=== PATIENT | female | born 1995 | race Two or more races ===

== ENCOUNTER 2016-10-15 14:06 | Emergency (ER) | payer MEDICAID ==
[2016-10-15 15:18] LABS: SPECIFIC GRAVITY 1.015 (1.001-1.030); URINE BILIRUBIN NEGATIVE (NEGATIVE); URINE BLOOD TRACE (NEGATIVE); URINE GLUCOSE (UA) NEGATIVE (NEGATIVE); URINE LEUKOCYTE ESTERASE 1+ (NEGATIVE); URINE NITRITE NEGATIVE (NEGATIVE); URINE PROTEIN TRACE (NEGATIVE); URINE UROBILINOGEN NORMAL (0-1 mg/dl)
[2016-10-15] MEDS ORDERED: ONDANSETRON 4 MG ODT TAB ONE (15:36)
[2016-10-15 15:39] LABS: URINE APPEARANCE CLOUDY; URINE COLOR YELLOW; URINE EPITHELIAL CELLS 15-20 /hpf; URINE RBC 0 /hpf; URINE WBC 40-50 /hpf
[2016-10-15 15:40] LABS: URINE AMORPHOUS SEDIMENT MODERATE; URINE BACTERIA 2+
[2016-10-15] MEDS ORDERED: CEPHALEXIN 500 MG CAPSULE ONE (16:17)
[2016-10-15 16:35] LABS: URINE BILIRUBIN NEGATIVE (NEGATIVE); URINE BLOOD 4+ (NEGATIVE); URINE GLUCOSE (UA) NEGATIVE (NEGATIVE); URINE LEUKOCYTE ESTERASE 1+ (NEGATIVE); URINE NITRITE NEGATIVE (NEGATIVE); URINE PROTEIN NEGATIVE (NEGATIVE); URINE UROBILINOGEN NORMAL (0-1 mg/dl)
[2016-10-15 16:41] LABS: URINE APPEARANCE SL CLOUDY; URINE COLOR YELLOW; URINE RBC 15-30 /hpf
[2016-10-15 16:42] LABS: URINE BACTERIA 1+; URINE EPITHELIAL CELLS 0-1 /hpf; URINE WBC 20-30 /hpf
== END 2016-10-15 16:40 | disposition home or self-care (01) ==
LOC: ED 14:06
DX: O23.41 Unspecified infection of urinary tract in pregnancy, first trimester (principal); N39.0 Urinary tract infection, site not specified; Z3A.12 12 weeks gestation of pregnancy
CPT/HCPCS: 87086; 87186; 81001 ×2; 87077; 99284; 99283; A9270 ×2

== ENCOUNTER 2016-10-22 11:24 | Inpatient (IN) | payer MEDICAID ==
[2016-10-22 12:47] LABS: ABSOLUTE NEUTROPHIL COUNT 15.5 K/mm3 (1.8-7.7); BASO % 0.2 % (0.2-1.0); HEMATOCRIT 35.4 % (37.0-47.0); HEMOGLOBIN 11.3 gm/l (12.0-16.0); IMM NEUT # 0.1 K/mm3 (0-0.2); IMM NEUT% 0.6 % (0-1); LYMPH # 0.8 (1.0-4.8); LYMPH % 4.5 % (15-45); MEAN CORPUSCULAR HEMOGLOBIN 24.9 pg (27.0-31.0); MEAN CORPUSCULAR HGB CONC 31.9 g/dl (33.0-37.0); MEAN PLATELET VOLUME 10.9 fl (7.4-10.4); MONO # 1.9 (0.0-0.8); MONO % 10.1 % (4-12); NEUT % 84.6 % (43-75); PLATELET COUNT 212 K/mm3 (130-400); RED CELL DISTRIBUTION WIDTH 14.3 % (11.5-14.5)
[2016-10-22] MEDS ORDERED: SODIUM CHLORIDE 0.9% 2,000 ML ONE (12:48)
[2016-10-22] MEDS ORDERED: DIPHENHYDRAMINE HCL 50 MG/1 ML VIAL ONE (12:48)
[2016-10-22] MEDS ORDERED: ACETAMINOPHEN 325 MG TABLET ONE (12:48)
[2016-10-22] MEDS ORDERED: ONDANSETRON 4 MG/2ML 2 ML VIAL ONE (12:48)
[2016-10-22 13:11] LABS: I-STAT CREATININE 0.7 mg/dL (0.6-1.3)
[2016-10-22] MEDS ORDERED: CEFTRIAXONE 1 GRAM DUPLEX 50 ML IV ONE (14:34)
--- NOTE | 2016-10-22 14:41 | US ---
RENALS/BLADDER COMPARISON: None. HISTORY: 21 years old. 13 weeks . Pyelonephritis and bilateral flank pain. FINDINGS: Right kidney: Normal size, length 12.1 cm by AP 5.0 cm by transverse 4.9 cm. Normal cortical thickness 8 mm. Normal resistive index 0.67. No stone, hydronephrosis, mass, or cyst. Left kidney: Normal size, 12.4 x 6.3 x 6.2 cm. Normal cortical thickness 8 mm. Normal resistive index 0.67. In the superior medial kidney, 2.1 x 1.7 x 2.1 cm mildly hyperechoic mass. No stone, hydronephrosis, or cyst. Ureters: Neither ureteral jet was identified over a 15 minute period. Urinary bladder: Prevoid volume normal at 113 mL. The patient emptied completely. IMPRESSION: 1. There is no hydronephrosis or evidence of renal abscess. 2. 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 3. No evidence of urine from either ureter. Differential diagnosis includes dehydration or less likely renal failure. The report was sent to the emergency department electronic medical record system, 10/22/2016 at 14:43
[2016-10-22 15:19] LABS: URINE BILIRUBIN NEGATIVE (NEGATIVE); URINE BLOOD TRACE (NEGATIVE); URINE GLUCOSE (UA) NEGATIVE (NEGATIVE); URINE LEUKOCYTE ESTERASE NEGATIVE (NEGATIVE); URINE NITRITE NEGATIVE (NEGATIVE); URINE PROTEIN 1+ (NEGATIVE); URINE UROBILINOGEN 1 mg/dL (0-1 mg/dl)
[2016-10-22 15:25] LABS: URINE APPEARANCE SL CLOUDY; URINE COLOR DARK YELLOW
[2016-10-22 15:31] LABS: URINE RBC 0-2 /hpf
[2016-10-22 15:32] LABS: URINE AMORPHOUS SEDIMENT FEW; URINE BACTERIA 2+
[2016-10-22 16:10] LABS: ALB/GLOB RATIO 0.9 (>1.0); ALBUMIN 3.4 gm/dL (3.5-5.7); CALCIUM 8.9 mg/dL (8.6-10.3)
[2016-10-22] MEDS ORDERED: SODIUM CHLORIDE 0.9% 100 ML IV PRN (17:06)
[2016-10-22] MEDS ORDERED: MENTHOL/CETYLPYRD 1 EACH LOZENGE PO PRN (17:06)
[2016-10-22] MEDS ORDERED: MAGNESIUM HYDROXIDE 30 ML UDCUP PO PRN (17:06)
[2016-10-22] MEDS ORDERED: BISACODYL 10 MG SUP PR PRN (17:06)
[2016-10-22] MEDS ORDERED: BISACODYL 5 MG TABLET.EC PO PRN (17:06)
[2016-10-22] MEDS ORDERED: BLISTEX LIPSTICK 1 EACH TP PRN (17:06)
[2016-10-22 17:37] VITALS: BMI 24.3
[2016-10-22] MEDS ORDERED: PUMP TUBING ONE (17:44)
[2016-10-22] MEDS: SODIUM CHLORIDE 0.9% 1,000 ML IV SCH (17:47)
[2016-10-22] MEDS: DOCUSATE SODIUM 100 MG CAPSULE PO SCH (21:18)
--- NOTE | 2016-10-22 21:35 | HP ---
GABBIE OLSON [id number] DATE OF ADMISSION: 10/22/2016 CHIEF COMPLAINT: Nausea and vomiting. HISTORY OF PRESENT ILLNESS: The patient is a 21-year-old G-2, P-1 female at 13 weeks and 5 days gestation by last menstrual period of 07/18/2016 who presented to the [facility] Emergency Department with intractable nausea and vomiting for the last 48 hours. She estimates she has thrown-up about ten times a day during this time and has been unable to keep her antibiotics down. She was treated on 10/16/2016 for a urinary tract infection which grew E-coli which was sensitive to cephalosporins. She had been prescribed Keflex 500 mg four times daily for seven days. She states she has been taking the medication as much as she is able, but has been getting sicker. She denies any fevers, chills or flank pain. She has had no hematemesis, no focal abdominal pain and no vaginal bleeding. REVIEW OF SYSTEMS: Negative for fevers, chills or upper respiratory symptoms. No cough, dyspnea, wheezing, chest pain, shortness of breath or palpitations. No hematemesis, no diarrhea, no focal abdominal pain and no arthralgias. No headaches, fainting, blackouts or seizures. She denies any urinary complaints at this time. PAST MEDICAL HISTORY: Significant for: 1. as mentioned above. She reports she had an uncomplicated vaginal delivery about three years ago. 2. She has no chronic medical problems and no prior hospitalizations. PAST SURGICAL HISTORY: Negative. ALLERGIES: No known drug allergies. CURRENT MEDICATIONS: Include: 1. Zofran 4 mg orally-dissolving tablets every six hours as needed for nausea. 2. Keflex 500 mg four times daily. 3. vitamin once daily. FAMILY HISTORY: Significant for a mother with diabetes. SOCIAL HISTORY: She is a nonsmoker. She denies alcohol use or illicit drug use. She is . She has a healthy 3-year-old child at home. She is Croatian-speaking only. Her primary care provider is Dr. Janneth Acosta. PHYSICAL EXAMINATION: VITAL SIGNS: Blood pressure 107/68. Pulse 120. Respirations 24. Temperature 99.0. Oxygen saturation is 100% on room air. GENERAL: This is a well-developed and well-nourished female in no acute distress. HEENT: Shows moist pink oral mucosa. No lesions. NECK: Supple, without lymphadenopathy or thyromegaly. LUNGS: Clear to auscultation bilaterally. CARDIOVASCULAR: Reveals a regular rate and rhythm, without a murmur. ABDOMEN: Soft, nontender and nondistended, with positive bowel sounds. heart tones were not assessed. PELVIC: Exam is deferred. RECTAL: Exam is deferred. EXTREMITIES: Showed no peripheral edema. LABORATORY STUDIES: Consisted of a CBC, with an elevated white blood cell count of 18,000, hemoglobin 11.3 and platelet count is 212,000 with a left shift on the differential. Her lactate level is normal at 1.2. Chemistry profile shows a sodium of 133, potassium 4.0, carbon dioxide 26, BUN of 7, creatinine 0.7 and glucose 101. Liver function tests are normal. Albumin is 3.4 and globulin is 3.7. Amylase and lipase are normal. Urinalysis shows 1+ protein, 2+ ketones and concentrated urine with 0-2 red cells, 5-10 white cells and 2+ bacteria. Blood cultures were obtained in the emergency department, but the urine was not cultured prior to initiating treatment. A catheterized specimen was recommended, but was not performed. DIAGNOSTIC IMAGING STUDIES: Included a renal ultrasound, showing no hydronephrosis or evidence of renal abscess. ASSESSMENT: 1. The patient has nausea and vomiting with dehydration and ketonuria. She is 13 weeks and 5 days with an intrauterine , possible component of hyperemesis gravidarum. 2. She also has a possible persistent urinary tract infection due to E-coli, with evidence of bacteriuria on her urinalysis and leukocytosis. Unfortunately her urine was not cultured prior to treatment. At this point I do not think a catheterized specimen is likely to be helpful, and she will be treated empirically with Rocephin. PLAN: She meets criteria for observation. She will be aggressively hydrated. She will be given Zofran for nausea and Rocephin for the urinary tract infection, along with saline. VTE risk is moderate and mechanical measures will be used for prophylaxis. Further treatment and recommendations will depend on her hospital course. cc: Dr. Janneth Aocsta
[2016-10-22] MEDS: ACETAMINOPHEN 325 MG TABLET PO PRN (22:44)
[2016-10-22] MEDS: ONDANSETRON 4 MG/2ML 2 ML VIAL IV PRN (22:52)
[2016-10-23] MEDS: SODIUM CHLORIDE 0.9% 1,000 ML IV SCH ×5 (02:00→20:53)
[2016-10-23 05:55] LABS: ABSOLUTE NEUTROPHIL COUNT 10.3 K/mm3 (1.8-7.7); BASO % 0.3 % (0.2-1.0); EOS % 0.1 % (0.9-2.9); HEMATOCRIT 29.7 % (37.0-47.0); HEMOGLOBIN 9.3 gm/l (12.0-16.0); IMM NEUT # 0.1 K/mm3 (0-0.2); IMM NEUT% 0.5 % (0-1); LYMPH # 1.4 (1.0-4.8); LYMPH % 10.1 % (15-45); MEAN CELL VOLUME 79.2 fl (81.0-99.0); MEAN CORPUSCULAR HEMOGLOBIN 24.8 pg (27.0-31.0); MEAN CORPUSCULAR HGB CONC 31.3 g/dl (33.0-37.0); MEAN PLATELET VOLUME 11.3 fl (7.4-10.4); MONO # 1.7 (0.0-0.8); MONO % 12.3 % (4-12); NEUT % 76.7 % (43-75); PLATELET COUNT 193 K/mm3 (130-400); RED CELL DISTRIBUTION WIDTH 14.6 % (11.5-14.5)
[2016-10-23] MEDS ORDERED: SODIUM CHLORIDE 0.9% FLUSH 10 ML ONE (07:12)
[2016-10-23] MEDS ORDERED: IV START KIT ONE ×2 (07:12→08:10)
[2016-10-23] MEDS: DOCUSATE SODIUM 100 MG CAPSULE PO SCH ×2 (09:18→21:12)
[2016-10-23] MEDS ORDERED: AZITHROMYCIN 250 MG TABLET PO ONE (09:45)
[2016-10-23] MEDS: ONDANSETRON 4 MG/2ML 2 ML VIAL IV PRN (11:16)
--- NOTE | 2016-10-23 11:22 | PDOC43 ---
- Subjective Chief Complaint: Nausea/Vomiting Patient reports feeling better, still some nausea. Still some abd/RUQ/back pain. - Objective Vital Signs Temperature 97.8 F 10/23/16 07:31 Pulse Rate 89 10/23/16 07:31 Respiratory Rate 15 10/23/16 08:00 Blood Pressure 92/51 10/23/16 07:31 O2 Saturation by Pulse Oximetry 100 10/23/16 07:31 Oxygen Delivery Method Room Air Oxygen Flow Rate 0 Vital Signs Last 12 Hours Temp Pulse Resp BP Pulse Ox 10/23/16 08:00 15 10/23/16 07:31 97.8 F 89 15 92/51 100 10/23/16 06:33 16 10/23/16 01:43 98 18 90/51 98 10/23/16 01:34 98.7 F 10/23/16 00:10 18 10/22/16 23:56 99.5 F 110 18 82/49 100 Intake and Output 10/21/16 10/22/16 10/23/16 23:59 23:59 23:59 Intake Total 1914 Output Total 700 Balance 1214 General: Alert, Cooperative, Other (Angelica helps with translation), No Acute Distress HEENT: Atraumatic Lungs: Clear to Auscultation Bilaterally, Normal Air Movement Cardiovascular: Regular Rate and Rhythm Abdomen: Soft, Tenderness (RUQ, and a little tender suprapubic), Normal Bowel Sounds, Non-Distended, Other (some CVA tenderness), No Rebounding, No Involuntary Guarding Extremities: No Edema, No Tenderness Skin: Normal Color Neurological: Normal Speech Psych/Mental Status: Normal Affect, Normal Mood Laboratory 10/23/16 05:30 10/23/16 05:30 10/23/16 05:30 RBC 3.75 L MCV 79.2 L MCH 24.8 L MCHC 31.3 L RDW 14.6 H Estimated GFR 157 H Calcium 8.0 L Verbal report that patient had a recent dx of +Chlamydia at office, but not treated yet. Current Medications: Current meds reviewed in EMR. Active Medications Acetaminophen (Tylenol) 650 mg PO Q6H PRN PRN Reason: Pain or Temperature > 100.5 F Last Admin: 10/22/16 22:44 Dose: 650 mg Benzocaine/Menthol (Cepacol) 1 each PO PRN PRN PRN Reason: Sore Throat Bisacodyl (Dulcolax) 10 mg [place] DAILY PRN PRN Reason: Constipation Bisacodyl (Dulcolax) 5 mg PO DAILY PRN PRN Reason: Constipation Docusate Sodium (Colace) 100 mg PO BID [facility] Last Admin: 10/23/16 09:18 Dose: 100 mg Ceftriaxone Sodium/Dextrose 1 (g/ Premix (D5W) 50 ml) 50 mls @ 100 mls/hr IV Q24H [facility] Sodium Chloride (Sodium Chloride 0.9%) 100 mls @ 25 mls/hr IV PRN PRN PRN Reason: Flush Sodium Chloride (Sodium Chloride 0.9%) 1,000 mls @ 125 mls/hr IV .Q8H [facility] Last Admin: 10/23/16 09:08 Dose: Not Given Magnesium Hydroxide (Milk Of Magnesia) 30 ml PO DAILY PRN PRN Reason: Constipation Ondansetron HCl (Zofran) 4 mg IV Q4H PRN PRN Reason: Nausea/Vomiting Last Admin: 10/22/16 22:52 Dose: 4 mg Petrolatum/Paraffin/Mineral Oil (Blistex) 1 each TP PRN PRN PRN Reason: Dry and/or chapped lips Sodium Chloride (Normal Saline 10ml Flush) 10 ml IV Q8HR [facility] Last Admin: 10/23/16 08:32 Dose: 10 ml Sodium Chloride (Normal Saline 10ml Flush) 10 ml IV PRN PRN Last Admin: 10/23/16 06:25 Dose: 10 ml - Problems: Assessment/Plan (1) UTI in Status: AcuteAssessment/Plan: With suspected R pyelonephritis. Blood culture neg so far, Urine culture pending. Had been on Keflex, but appears to have failed outpt tx of UTI. Ultrasound not diagnostic for pyelo, had appeared to be dehydrated. Continue IVF, Rocephin. Anticipate pt to stay with us another day. (2) with 13 completed weeks gestation Status: AcuteAssessment/Plan: Appears stable. (3) Nausea/vomiting in Status: AcuteAssessment/Plan: Suspect related to pyelo/UTI, continue IVF, nausea med (4) Chlamydia Status: AcuteAssessment/Plan: Pt reports + test result at [place]. No tx yet, so azithromycin ordered. Pt reports partner will be treated on Tuesday. (5) Anemia affecting Status: AcuteAssessment/Plan: continue PNV VTE Prophylaxis: not indicated Disposition: anticipate return to home, poss 10/24
[2016-10-23] MEDS: PRENATAL VIT/FE FUMARATE/FA 1 TABLET PO SCH (12:54)
[2016-10-23] MEDS: CEFTRIAXONE 1 GRAM DUPLEX 1 G in Premix (D5W) 50 ml 1 EACH IV SCH (14:25)
[2016-10-24] MEDS: SODIUM CHLORIDE 0.9% 1,000 ML IV SCH ×3 (05:48→23:06)
--- NOTE | 2016-10-24 07:42 | PDOC43 ---
- Subjective Chief Complaint: Nausea/Vomiting Patient reports tolerating PO a little better, did throw up last night. Pain continues in abd, flanks bilat, about same as yesterday. Reported some cramping yesterday, but not today, and no vaginal bleeding. Tolerated azithromycin well, did not vomit it up. - Objective Vital Signs Temperature 98.6 F 10/24/16 05:19 Pulse Rate 85 10/24/16 05:19 Respiratory Rate 16 10/24/16 05:21 Blood Pressure 96/58 10/24/16 05:19 O2 Saturation by Pulse Oximetry 99 10/24/16 05:19 Oxygen Delivery Method Room Air Oxygen Flow Rate 0 Vital Signs Last 12 Hours Temp Pulse Resp BP Pulse Ox 10/24/16 05:21 16 10/24/16 05:19 98.6 F 85 16 96/58 99 10/23/16 21:17 18 10/23/16 19:26 99.0 F 88 15 93/53 100 Intake and Output 10/22/16 10/23/16 10/25/16 23:59 23:59 00:59 Intake Total 3707 2532 Output Total 2450 1400 Balance 1257 1132 General: Alert, Cooperative, Other (wakes normally) Lungs: Clear to Auscultation Bilaterally Cardiovascular: Regular Rate and Rhythm Abdomen: Soft, Hypoactive Bowel Sounds, Other (sl tender RUQ, more than LUQ. Flanks sl tender. No suprapubic tenderness. No R/G.) Extremities: No Edema Skin: Normal Color Neurological: Normal Speech Psych/Mental Status: Normal Affect Laboratory 10/23/16 05:30 10/23/16 05:30 Blood cx neg so far Urine cx pending Current Medications: Current meds reviewed in EMR. Active Medications Acetaminophen (Tylenol) 650 mg PO Q6H PRN PRN Reason: Pain or Temperature > 100.5 F Last Admin: 10/22/16 22:44 Dose: 650 mg Benzocaine/Menthol (Cepacol) 1 each PO PRN PRN PRN Reason: Sore Throat Bisacodyl (Dulcolax) 10 mg [place] DAILY PRN PRN Reason: Constipation Bisacodyl (Dulcolax) 5 mg PO DAILY PRN PRN Reason: Constipation Docusate Sodium (Colace) 100 mg PO BID [facility] Last Admin: 10/23/16 21:12 Dose: 100 mg Ceftriaxone Sodium/Dextrose 1 (g/ Premix (D5W) 50 ml) 50 mls @ 100 mls/hr IV Q24H [facility] Last Admin: 10/23/16 14:25 Dose: 100 mls/hr Sodium Chloride (Sodium Chloride 0.9%) 100 mls @ 25 mls/hr IV PRN PRN PRN Reason: Flush Sodium Chloride (Sodium Chloride 0.9%) 1,000 mls @ 125 mls/hr IV .Q8H [facility] Last Admin: 10/24/16 05:48 Dose: 125 mls/hr Magnesium Hydroxide (Milk Of Magnesia) 30 ml PO DAILY PRN PRN Reason: Constipation Multivi/Iron Carb/Fe Sulf/FA/Prenat ( Plus) 1 tab PO DAILY [facility] Last Admin: 10/23/16 12:54 Dose: Not Given Ondansetron HCl (Zofran) 4 mg IV Q4H PRN PRN Reason: Nausea/Vomiting Last Admin: 10/23/16 11:16 Dose: 4 mg Petrolatum/Paraffin/Mineral Oil (Blistex) 1 each TP PRN PRN PRN Reason: Dry and/or chapped lips Sodium Chloride (Normal Saline 10ml Flush) 10 ml IV Q8HR [facility] Last Admin: 10/24/16 01:58 Dose: Not Given Sodium Chloride (Normal Saline 10ml Flush) 10 ml IV PRN PRN Last Admin: 10/23/16 06:25 Dose: 10 ml - Problems: Assessment/Plan (1) UTI in Status: AcuteAssessment/Plan: With suspected R pyelonephritis. No fevers since 103 on 10/22 at 11 pm. WBC 18-> 13 yesterday Blood culture neg so far, Urine culture still pending. Had been on Keflex, but appears to have failed outpt tx of UTI. Ultrasound not diagnostic for pyelo, had appeared to be dehydrated. On IVF, Rocephin. (2) with 13 completed weeks gestation Status: AcuteAssessment/Plan: Appears stable. Seeing Janneth Acosta for care. (3) Nausea/vomiting in Status: AcuteAssessment/Plan: Appears improving. Suspect related to pyelo/UTI, continue IVF, nausea med (4) Chlamydia Status: AcuteAssessment/Plan: Pt reports + test result at [place]. Had not been tx yet, so azithromycin given 10/23 Pt reports partner will be treated on Tuesday. (5) Anemia affecting Status: AcuteAssessment/Plan: continue PNV. VTE Prophylaxis: not indicated Disposition: anticipate return to home, probably 10/25, assuming blood cultures neg
[2016-10-24] MEDS: PRENATAL VIT/FE FUMARATE/FA 1 TABLET PO SCH (10:08)
[2016-10-24] MEDS: DOCUSATE SODIUM 100 MG CAPSULE PO SCH ×2 (10:08→21:00)
[2016-10-24] MEDS: ONDANSETRON 4 MG/2ML 2 ML VIAL IV PRN (10:18)
[2016-10-24] MEDS: ACETAMINOPHEN 325 MG TABLET PO PRN (10:30)
[2016-10-24] MEDS: CEFTRIAXONE 1 GRAM DUPLEX 1 G in Premix (D5W) 50 ml 1 EACH IV SCH (14:37)
[2016-10-25 05:46] LABS: ABSOLUTE NEUTROPHIL COUNT 4.1 K/mm3 (1.8-7.7); BASO % 0.5 % (0.2-1.0); EOS # 0.2 (0.0-0.5); EOS % 2.9 % (0.9-2.9); HEMATOCRIT 29.2 % (37.0-47.0); HEMOGLOBIN 9.1 gm/l (12.0-16.0); IMM NEUT% 0.6 % (0-1); LYMPH # 1.5 (1.0-4.8); LYMPH % 23.1 % (15-45); MEAN CELL VOLUME 79.8 fl (81.0-99.0); MEAN CORPUSCULAR HEMOGLOBIN 24.9 pg (27.0-31.0); MEAN CORPUSCULAR HGB CONC 31.2 g/dl (33.0-37.0); MEAN PLATELET VOLUME 10.8 fl (7.4-10.4); MONO # 0.7 (0.0-0.8); MONO % 10.3 % (4-12); NEUT % 62.6 % (43-75); PLATELET COUNT 238 K/mm3 (130-400); RED CELL DISTRIBUTION WIDTH 14.8 % (11.5-14.5)
[2016-10-25 06:02] LABS: CALCIUM 8.3 mg/dL (8.6-10.3)
[2016-10-25] MEDS: SODIUM CHLORIDE 0.9% 1,000 ML IV SCH (07:13)
[2016-10-25] MEDS: PRENATAL VIT/FE FUMARATE/FA 1 TABLET PO SCH (08:53)
[2016-10-25] MEDS: DOCUSATE SODIUM 100 MG CAPSULE PO SCH ×2 (08:53→21:00)
--- NOTE | 2016-10-25 11:55 | PDOC43 ---
- Subjective Chief Complaint: Nausea/Vomiting, suspected pyelonephritis, IUP Patient reports feeling much better. Ate ok, no more nausea. Feeling well. No more pain - Objective Vital Signs Temperature 97.7 F 10/25/16 06:27 Pulse Rate 71 10/25/16 06:27 Respiratory Rate 16 10/25/16 08:00 Blood Pressure 95/58 10/25/16 06:27 O2 Saturation by Pulse Oximetry 98 10/25/16 06:27 Oxygen Delivery Method Room Air Oxygen Flow Rate 0 Vital Signs Last 12 Hours Temp Pulse Resp BP Pulse Ox 10/25/16 08:00 16 10/25/16 06:27 97.7 F 71 16 95/58 98 10/25/16 01:43 18 10/25/16 01:28 98.3 F 77 18 99/63 100 Intake and Output 10/23/16 10/24/16 10/25/16 22:59 23:59 23:59 Intake Total 1726 Output Total 3900 Balance -2174 General: Alert, Cooperative, No Acute Distress Lungs: Clear to Auscultation Bilaterally, Normal Air Movement Cardiovascular: Regular Rate and Rhythm Abdomen: Soft, Normal Bowel Sounds, Non-Distended, No Tenderness, No Rebounding , No Involuntary Guarding Extremities: No Edema, No Tenderness Skin: Normal Color Neurological: Normal Speech Psych/Mental Status: Normal Mood Laboratory 10/25/16 05:20 10/25/16 05:20 10/25/16 05:20 RBC 3.66 L MCV 79.8 L MCH 24.9 L MCHC 31.2 L RDW 14.8 H BUN 6 L Estimated GFR 157 H Calcium 8.3 L Current Medications: Current meds reviewed in EMR. Active Medications Acetaminophen (Tylenol) 650 mg PO Q6H PRN PRN Reason: Pain or Temperature > 100.5 F Last Admin: 10/24/16 10:30 Dose: 650 mg Benzocaine/Menthol (Cepacol) 1 each PO PRN PRN PRN Reason: Sore Throat Bisacodyl (Dulcolax) 10 mg [place] DAILY PRN PRN Reason: Constipation Bisacodyl (Dulcolax) 5 mg PO DAILY PRN PRN Reason: Constipation Docusate Sodium (Colace) 100 mg PO BID [facility] Last Admin: 10/25/16 08:53 Dose: 100 mg Ceftriaxone Sodium/Dextrose 1 (g/ Premix (D5W) 50 ml) 50 mls @ 100 mls/hr IV Q24H [facility] Last Admin: 10/24/16 14:37 Dose: 100 mls/hr Sodium Chloride (Sodium Chloride 0.9%) 100 mls @ 25 mls/hr IV PRN PRN PRN Reason: Flush Magnesium Hydroxide (Milk Of Magnesia) 30 ml PO DAILY PRN PRN Reason: Constipation Multivi/Iron Carb/Fe Sulf/FA/Prenat ( Plus) 1 tab PO DAILY [facility] Last Admin: 10/25/16 08:53 Dose: 1 tab Ondansetron HCl (Zofran) 4 mg IV Q4H PRN PRN Reason: Nausea/Vomiting Last Admin: 10/24/16 10:18 Dose: 4 mg Petrolatum/Paraffin/Mineral Oil (Blistex) 1 each TP PRN PRN PRN Reason: Dry and/or chapped lips Sodium Chloride (Normal Saline 10ml Flush) 10 ml IV Q8HR [facility] Last Admin: 10/25/16 08:53 Dose: 10 ml Sodium Chloride (Normal Saline 10ml Flush) 10 ml IV PRN PRN Last Admin: 10/23/16 06:25 Dose: 10 ml - Problems: Assessment/Plan (1) UTI in Status: AcuteAssessment/Plan: With suspected R pyelonephritis. No fevers since 103 on 10/22 at 11 pm. WBC 18-> 13 -> 6.5, clinically appears much better today. Blood culture still neg so far, Urine culture still pending. Had been on Keflex, but appears to have failed outpt tx of UTI. Ultrasound not diagnostic for pyelo, had appeared to be dehydrated. On IVF, Rocephin. (2) with 13 completed weeks gestation Status: AcuteAssessment/Plan: Appears stable. Seeing Janneth Acosta for care. (3) Nausea/vomiting in Status: AcuteAssessment/Plan: Appears resolved Suspect related to pyelo/UTI, continue IVF, nausea med (4) Chlamydia Status: AcuteAssessment/Plan: Pt reports + test result at [place]. Had not been tx yet, so azithromycin given 10/23 Pt reports partner will be treated on Tuesday. (5) Anemia affecting Status: AcuteAssessment/Plan: continue PNV. VTE Prophylaxis: not indicated Disposition: anticipate return to home, today 10/25; still awaiting urine and blood culture final results.
[2016-10-25] MEDS: CEFTRIAXONE 1 GRAM DUPLEX 1 G in Premix (D5W) 50 ml 1 EACH IV SCH (14:21)
[2016-10-26] MEDS: PRENATAL VIT/FE FUMARATE/FA 1 TABLET PO SCH (09:30)
[2016-10-26] MEDS: DOCUSATE SODIUM 100 MG CAPSULE PO SCH (09:30)
--- NOTE | 2016-10-26 11:44 | PDOC43 ---
- Subjective Chief Complaint: Nausea/Vomiting, suspected pyelonephritis, IUP Patient reports feeling well, no pain, no nausea. No c/o, eager for DC. - Objective Vital Signs Temperature 97.6 F 10/26/16 06:54 Pulse Rate 60 10/26/16 06:54 Respiratory Rate 16 10/26/16 08:00 Blood Pressure 92/53 10/26/16 06:54 O2 Saturation by Pulse Oximetry 99 10/26/16 06:54 Oxygen Delivery Method Room Air Oxygen Flow Rate 0 Vital Signs Last 12 Hours Temp Pulse Resp BP Pulse Ox 10/26/16 08:00 16 10/26/16 06:54 97.6 F 60 16 92/53 99 10/26/16 02:00 16 10/26/16 01:30 98.5 F 75 16 105/59 99 Intake and Output 10/24/16 10/25/16 10/26/16 23:59 23:59 23:59 Intake Total 3423 600 Output Total 5000 1350 Balance -1577 -750 General: Alert, Cooperative, No Acute Distress Lungs: Clear to Auscultation Bilaterally, Normal Air Movement Cardiovascular: Regular Rate and Rhythm Abdomen: Soft, Normal Bowel Sounds, Non-Distended, No Tenderness, No Rebounding , No Involuntary Guarding Extremities: No Edema Skin: Normal Color Neurological: Normal Speech Psych/Mental Status: Normal Affect, Normal Mood Laboratory 10/25/16 05:20 10/25/16 05:20 Current Medications: Current meds reviewed in EMR. Active Medications Acetaminophen (Tylenol) 650 mg PO Q6H PRN PRN Reason: Pain or Temperature > 100.5 F Last Admin: 10/24/16 10:30 Dose: 650 mg Benzocaine/Menthol (Cepacol) 1 each PO PRN PRN PRN Reason: Sore Throat Bisacodyl (Dulcolax) 10 mg [place] DAILY PRN PRN Reason: Constipation Bisacodyl (Dulcolax) 5 mg PO DAILY PRN PRN Reason: Constipation Docusate Sodium (Colace) 100 mg PO BID [facility] Last Admin: 10/26/16 09:30 Dose: 100 mg Ceftriaxone Sodium/Dextrose 1 (g/ Premix (D5W) 50 ml) 50 mls @ 100 mls/hr IV Q24H [facility] Last Admin: 10/25/16 14:21 Dose: 100 mls/hr Sodium Chloride (Sodium Chloride 0.9%) 100 mls @ 25 mls/hr IV PRN PRN PRN Reason: Flush Magnesium Hydroxide (Milk Of Magnesia) 30 ml PO DAILY PRN PRN Reason: Constipation Multivi/Iron Carb/Fe Sulf/FA/Prenat ( Plus) 1 tab PO DAILY [facility] Last Admin: 10/26/16 09:30 Dose: 1 tab Ondansetron HCl (Zofran) 4 mg IV Q4H PRN PRN Reason: Nausea/Vomiting Last Admin: 10/24/16 10:18 Dose: 4 mg Petrolatum/Paraffin/Mineral Oil (Blistex) 1 each TP PRN PRN PRN Reason: Dry and/or chapped lips Sodium Chloride (Normal Saline 10ml Flush) 10 ml IV Q8HR [facility] Last Admin: 10/26/16 09:30 Dose: 10 ml Sodium Chloride (Normal Saline 10ml Flush) 10 ml IV PRN PRN Last Admin: 10/25/16 14:21 Dose: 10 ml - Problems: Assessment/Plan (1) UTI in Status: AcuteAssessment/Plan: With suspected R pyelonephritis. No fevers since 103 on 10/22 at 11 pm. WBC 18-> 13 -> 6.5, clinically appears much better since yesterday Blood culture still neg Had been on Keflex, but appears to have failed outpt tx of UTI; although urine culture ended up negative. . Ultrasound not diagnostic for pyelo, had appeared to be dehydrated. On IVF, Rocephin, plan switch to PO (2) with 13 completed weeks gestation Status: AcuteAssessment/Plan: Appears stable. Seeing Janneth Acosta for care. (3) Nausea/vomiting in Status: AcuteAssessment/Plan: Appears resolved Suspect related to pyelo/UTI, continue IVF, nausea med (4) Chlamydia Status: AcuteAssessment/Plan: Pt reports + test result at [place]. Had not been tx yet, so azithromycin given 10/23 Pt reports partner treated on Tuesday. (5) Anemia affecting Status: AcuteAssessment/Plan: continue PNV. VTE Prophylaxis: not indicated Disposition: anticipate return to home, today 10/26
--- NOTE | 2016-10-26 11:54 | PDOC43 ---
- Subjective Chief Complaint: Nausea/Vomiting, suspected pyelonephritis, IUP Pt reports feeling much better, no complaints. Feeling well, eating well. - Objective Vital Signs Temperature 97.6 F 10/26/16 06:54 Pulse Rate 60 10/26/16 06:54 Respiratory Rate 16 10/26/16 08:00 Blood Pressure 92/53 10/26/16 06:54 O2 Saturation by Pulse Oximetry 99 10/26/16 06:54 Oxygen Delivery Method Room Air Oxygen Flow Rate 0 Intake and Output 10/24/16 10/25/16 10/26/16 23:59 23:59 23:59 Intake Total 3423 600 Output Total 5000 1350 Balance -1577 -750 General: Alert, Oriented x3, Cooperative, No Acute Distress Lungs: Clear to Auscultation Bilaterally, Normal Air Movement Cardiovascular: Regular Rate and Rhythm, Normal S1, Normal S2 Abdomen: Soft, Normal Bowel Sounds, Non-Distended, No Tenderness, No Rebounding , No Involuntary Guarding Extremities: No Edema, No Tenderness Psych/Mental Status: Normal Affect, Normal Mood Laboratory 10/25/16 05:20 10/25/16 05:20 Current Medications: Current meds reviewed in EMR. Active Medications Acetaminophen (Tylenol) 650 mg PO Q6H PRN PRN Reason: Pain or Temperature > 100.5 F Last Admin: 10/24/16 10:30 Dose: 650 mg Benzocaine/Menthol (Cepacol) 1 each PO PRN PRN PRN Reason: Sore Throat Bisacodyl (Dulcolax) 10 mg IN DAILY PRN PRN Reason: Constipation Bisacodyl (Dulcolax) 5 mg PO DAILY PRN PRN Reason: Constipation Docusate Sodium (Colace) 100 mg PO BID [facility] Last Admin: 10/26/16 09:30 Dose: 100 mg Ceftriaxone Sodium/Dextrose 1 (g/ Premix (D5W) 50 ml) 50 mls @ 100 mls/hr IV Q24H [facility] Last Admin: 10/25/16 14:21 Dose: 100 mls/hr Sodium Chloride (Sodium Chloride 0.9%) 100 mls @ 25 mls/hr IV PRN PRN PRN Reason: Flush Magnesium Hydroxide (Milk Of Magnesia) 30 ml PO DAILY PRN PRN Reason: Constipation Multivi/Iron Carb/Fe Sulf/FA/Prenat ( Plus) 1 tab PO DAILY [facility] Last Admin: 10/26/16 09:30 Dose: 1 tab Ondansetron HCl (Zofran) 4 mg IV Q4H PRN PRN Reason: Nausea/Vomiting Last Admin: 10/24/16 10:18 Dose: 4 mg Petrolatum/Paraffin/Mineral Oil (Blistex) 1 each TP PRN PRN PRN Reason: Dry and/or chapped lips Sodium Chloride (Normal Saline 10ml Flush) 10 ml IV Q8HR [facility] Last Admin: 10/26/16 09:30 Dose: 10 ml Sodium Chloride (Normal Saline 10ml Flush) 10 ml IV PRN PRN Last Admin: 10/25/16 14:21 Dose: 10 ml - Problems: Assessment/Plan (1) UTI in Status: AcuteAssessment/Plan: With suspected R pyelonephritis. No fevers since 103 on 10/22 at 11 pm. WBC 18-> 13 -> 6.5, clinically appears much better since yesterday Blood culture still neg Had been on Keflex, but appears to have failed outpt tx of UTI; although urine culture ended up negative. . Ultrasound not diagnostic for pyelo, had appeared to be dehydrated. On IVF, Rocephin, plan switch to PO (2) with 13 completed weeks gestation Status: AcuteAssessment/Plan: Appears stable. Seeing Janneth Acosta for care. (3) Nausea/vomiting in Status: AcuteAssessment/Plan: Appears resolved Suspect related to pyelo/UTI, continue IVF, nausea med (4) Chlamydia Status: AcuteAssessment/Plan: Pt reports + test result at [place]. Had not been tx yet, so azithromycin given 10/23 Pt reports partner treated on Tuesday. (5) Anemia affecting Status: AcuteAssessment/Plan: continue PNV. VTE Prophylaxis: not indicated Disposition: anticipate return to home, today 10/26
--- NOTE | 2016-10-26 13:32 | DS ---
Ashanti Christian [id number] DATE OF ADMISSION: 10/22/2016 DATE OF DISCHARGE: 10/26/2016 DISCHARGE DIAGNOSES: 1. Pyelonephritis, presumed bacterial, but with negative urinary cultures. 2. Intrauterine approximately 13 weeks. 3. Reported positive Chlamydia test treated with azithromycin during this hospitalization. 4. Anemia during with hemoglobin of 9.1 on 10/25/2016. 5. 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 REASON FOR ADMISSION: The patient is a 21-year-old female G2, P1 at 13 weeks and 5 days who presented to [facility] Emergency Department with intractable nausea and vomiting for the previous 48 hours. She had been treated on 10/26/2016 for urinary tract infection which had grown E-coli sensitive to cephalosporins. She was prescribed Keflex 500 mg by mouth four times a day for seven days, but was unable to keep these down due to vomiting. She in the emergency room had a white count of 18.4, hemoglobin 11.3, platelets 212, MCV of 78.0, lactate 1.2. Chemistry profile showed a sodium of 133, potassium 4.0, creatinine 0.7, BUN 7, glucose 101, liver enzymes normal. Urinalysis showed 5 to 10 white cells, 5 to 10 epithelial cells, 2+ bacteria, 1+ protein, 2+ ketones. She also had a renal ultrasound performed which showed no hydronephrosis or evidence of renal abscess, incidentally noted 2.1 x 1.7 x 2.1 cm probable angiomyolipoma of the left kidney, no evidence of urine from either ureter. Patient was referred to the hospitalist service and started on IV fluids and Rocephin. She had also mentioned that she had been advised that she had a positive Chlamydia test and was scheduled to be seen 10/25/2016 with her partner to be treated, however, during the hospitalization here she received 1 gm of azithromycin which tolerated very well. Patient had blood cultures which ultimately were negative. Urine cultures were done, but did not show any growth. Her white blood cell count improved from 18.4 to 13.4 to 6.5. Hemoglobin dropped somewhat with hydration from 11.3 to 9.1. Renal status remained good and by 10/26/2016 she was eating well, abdominal and back pain was resolved and eager for discharge. She is anticipated to be discharged to home on Cephalexin 500 mg by mouth four times daily x10 more days. She may continue her multivitamin, and ondansetron if needed. She is to follow up with Janneth Acosta and has an appointment 11/02/2016 at 8:00 a.m., but she is to notify her physician if having difficulty keeping medicines down or other problems. CONDITION ON DISCHARGE: Much improved. She did have a fever to 103 on admission 10/22/2016, but remained afebrile since that time. She was also advised to be sure that her partner follows up for treatment of himself. JOB: [id number] CC: Janneth Acosta
[2016-10-26 14:13] VITALS: BP 95/63
== END 2016-10-26 14:10 | disposition home or self-care (01) | DRG 781 ==
LOC: ED 11:24 → MS 15:51
PROVIDERS: ADMIT Family Medicine; ATTEND Family Medicine
DX: O23.01 Infections of kidney in pregnancy, first trimester (principal); O98.311 Other infections with a predominantly sexual mode of transmission complicating pregnancy, first trimester; A56.8 Sexually transmitted chlamydial infection of other sites; O99.011 Anemia complicating pregnancy, first trimester; D64.9 Anemia, unspecified; O23.41 Unspecified infection of urinary tract in pregnancy, first trimester; Z3A.13 13 weeks gestation of pregnancy